=== PATIENT | male | born 1965 | race African-American/Black ===

== ENCOUNTER → 2021-07-23 | Outpatient (CLI) | payer OTHER ==
--- NOTE | 2021-07-23 14:13 | EEG ---
DATE OF SERVICE: 07/23/2021 ELECTROENCEPHALOGRAM EEG NUMBER: [id number]. OBJECTIVE: The patient is a 55-year-old male with staring spells and episodes of confusion as well as dizziness. Rule out seizures. DESCRIPTION: This is a digital study. Electrodes were placed according to the international 10-20 system. Bipolar and referential montages are available. Activation procedures typically include hyperventilation and intermittent photic stimulation. INTERPRETATION: The waking background consists of 9-10 Hz, 50-100 microvolt activity, symmetrically distributed over parietooccipital regions and reactive to eye opening. Hyperventilation and intermittent photic stimulation are noncontributory. Brief periods of stage 1 sleep are achieved with normal electroencephalogram patterns. IMPRESSION: This electroencephalogram with the patient awake and asleep is within normal limits. There is no focal, paroxysmal, or epileptiform activity. Thank you for letting us help with the patient's care. MARY ANNE DR: Nhung TID: [id number] CC: ALEKSANDRA WATTERS, DU SANCHEZ MD
== END ==
LOC: EDUNIT# 07-02 09:00 → RT 08:57
PROVIDERS: ATTEND Nurse Practitioner Family
DX: R41.0 Disorientation, unspecified (principal); R40.4 Transient alteration of awareness; R42 Dizziness and giddiness
CPT/HCPCS: 95816

== ENCOUNTER → 2022-01-09 | Outpatient (CLI) | payer OTHER ==
--- NOTE | 2022-01-09 16:25 | KCIC ---
EXAM: Brain MRI without contrast. HISTORY: Confusion. Dizziness. TECHNIQUE: Multiplanar, multisequence magnetic resonance imaging of the brain was performed without c ontrast. COMPARISON: None. FINDINGS: The exam is limited due to significant motion. There is no restricted diffusion to suggest acute or subacute infarction. There is no susceptibility artifact to suggest hemorrhage. There is no mass effect or midline shift. There is no hydrocephalus. There are few scattered foci of signal yang e within the cerebral white matter. The orbits are unremarkable. There is paranasal sinus because of thickening. There are small maxillary sinus mucous retention cysts. The mastoid air cells are clear. There are normal flow voids within the cerebral vessels. There is no suspicious calvarial lesion. IMPRESSION: 1. No acute intracranial finding. 2. Scattered foci of signal change within the cerebral white matter, a nonspecific finding which is m ost commonly due to chronic small vessel disease in patients of this age. 3. Limited exam due to motion. Electronically signed by: Melissa Dodge MD (01/09/2022 4:22 PM) [id number]
== END ==
LOC: KCIC MRI 14:47
PROVIDERS: ATTEND Nurse Practitioner Family
DX: R40.4 Transient alteration of awareness (principal); R41.0 Disorientation, unspecified; R42 Dizziness and giddiness; J34.1 Cyst and mucocele of nose and nasal sinus
CPT/HCPCS: 70551